=== PATIENT | male | born 1995 | race Caucasian/White ===

== ENCOUNTER 2017-07-10 19:48 | Emergency (ER) | payer MEDICAID ==
[~2017-07-10] VITALS: Ht 185.4 cm; Wt 79.4 kg
[2017-07-10 20:14] VITALS: BP 131/80
[2017-07-10] MEDS ORDERED: DEXAMETHASONE 4 MG TABLET ONE (20:40)
[2017-07-10] MEDS ORDERED: KETOROLAC 30 MG/1 ML ONE (20:40)
[2017-07-10] MEDS ORDERED: DEXAMETHASONE 4 MG TABLET PO ONE (21:00)
[2017-07-10] MEDS ORDERED: KETOROLAC 30 MG/1 ML IM ONE (21:00)
== END 2017-07-10 21:51 | disposition home or self-care (01) ==
LOC: ED 21:10
DX: J02.8 Acute pharyngitis due to other specified organisms (principal); B34.9 Viral infection, unspecified; Z88.1 Allergy status to other antibiotic agents; Z91.040 Latex allergy status; Z88.6 Allergy status to analgesic agent
CPT/HCPCS: 87081; 87880; 96372; 99284; J1885

== ENCOUNTER 2017-12-10 20:37 | Emergency (ER) | payer MEDICAID ==
[~2017-12-10] VITALS: Ht 185.4 cm; Wt 80.0 kg
[2017-12-11 00:33] VITALS: BP 107/68
== END 2017-12-11 00:37 | disposition home or self-care (01) ==
LOC: ED 23:48
DX: J18.9 Pneumonia, unspecified organism (principal); J45.909 Unspecified asthma, uncomplicated; Z88.6 Allergy status to analgesic agent; Z88.2 Allergy status to sulfonamides; Z88.1 Allergy status to other antibiotic agents
CPT/HCPCS: 71046; 93005; 99284

== ENCOUNTER 2018-07-18 00:45 | Emergency (ER) | payer MEDICAID ==
[~2018-07-18] VITALS: Ht 185.4 cm; Wt 80.3 kg
[2018-07-18 00:47] VITALS: BP 110/74
[2018-07-18] MEDS ORDERED: DEXAMETHASONE 4 MG TABLET ONE (01:17)
[2018-07-18] MEDS ORDERED: FAMOTIDINE 20 MG TABLET ONE (01:18)
--- NOTE | 2018-07-18 01:23 | NUR ---
PT MEDICATED PER EMAR. 5 RIGHTS ADDRESSED
--- NOTE | 2018-07-18 01:26 | NUR ---
Patient/Caregiver given discharge instructions and they have confirmed that they understand the instructions. Patient ambulatory with steady gait.
[2018-07-18] MEDS ORDERED: FAMOTIDINE 20 MG TABLET PO ONE (01:30)
[2018-07-18] MEDS ORDERED: DEXAMETHASONE 4 MG TABLET PO ONE (01:30)
== END 2018-07-18 01:27 | disposition home or self-care (01) ==
LOC: ED 01:08
DX: L23.1 Allergic contact dermatitis due to adhesives (principal); J45.909 Unspecified asthma, uncomplicated; Z91.040 Latex allergy status; Z88.1 Allergy status to other antibiotic agents
CPT/HCPCS: 99284; Q0177